=== PATIENT | male | born 1955 | race Caucasian/White ===

== ENCOUNTER → 2017-04-13 | Day surgery (SDC) | payer MEDICARE ==
[~2017-04-13] VITALS: Ht 177.8 cm; Wt 95.1 kg
[~2017-04-13] MED LIST: ACETAMINOPHEN 1000 MG/100 ML VIAL IV ONE; ACETAMINOPHEN 1000 MG/100 ML VIAL IV SCH; BUPIVACAINE HCL PF 0.5% 30 ML VIAL ONE; BUSP15TA PO; CHLORHEXIDINE GLUCONATE 2 % 1 PACK (2 CLOTHS) TOPICAL PRN; DEXAMETHASONE SOD PHOS 4 MG/ML VIAL ONE; DO NOT ADM ANY ANTICOAGULANT DRUGS PRN; HYDROmorphone HCL PF 2 MG/ML VIAL ONE; INSULIN HUMAN REGULAR 1,000 UNITS/10 ML VIAL SQ PRN; LACTATED RINGER'S 1000 ML INJ 1,000 ML IV ONE; LACTATED RINGER'S 1000 ML IV PRN; LOVA20TA PO; METOPROLOL TARTRATE 25 MG TAB PO PRN; MIDAZOLAM HCL 2 MG/2 ML VIAL ONE; MORPHINE SULFATE 4 MG/ML INJ IV PRN; NEOSTIGMINE 3 MG/3 ML SYR IV ONE; OMEP20TA PO; ONDANSETRON HCL 4 MG/2 ML VIAL IV PRN; ONDANSETRON HCL 4 MG/2 ML VIAL IV PUSH ONE; OXYC1TAB63 PO; POVIDONE IODINE 5% (ANTISEPSIS KIT) 4 APPLICATIONS EACH NARE PRN; PROPOFOL 200 MG/20 ML AMP IV ONE; PROZ40CA PO; QUET400XR PO; SODIUM CHLORID 0.9% 500 ML IV PRN; SODIUM CHLORIDE 0.9% FLUSH 10 ML FLUSH IV FLUSH PRN; SODIUM CHLORIDE 0.9% FLUSH 10 ML FLUSH IV FLUSH SCH; ceFAZolin 2 GM PREMIX 50 ML IV SCH; ceFAZolin 2 GM PREMIX 50 ML ONE; ePHEDrine/NS 25 MG/5 ML SYR IV ONE; fentaNYL CITRATE 250 MCG/5 ML AMP ONE; oxyCODONE/ACETAMINOPHEN 5 MG/325 MG TAB ONE; oxyCODONE/ACETAMINOPHEN 5 MG/325 MG TAB PO PRN
[2017-04-13 11:15] VITALS: BP 111/68; PULSE 65; RESP 18; TEMP 97.5; O2SAT 96
--- NOTE | 2017-04-13 15:36 | PD.OP ---
cc: Suhas Mendieta MD Operative Report Date of Surgery: Apr 13, 2017 Preoperative Diagnosis: (1) Left inguinal hernia Postoperative Diagnosis: (1) Left inguinal hernia Procedure: Left inguinal hernia repair with mesh Anesthesia: XENA Surgeon: Suhas Mendieta [employer] Worker(s): Lm Triplett Operation and Findings: EBL: 10 cc Operative findings: The patient had a direct inguinal hernia and a large indirect inguinal hernia which appeared to contain sigmoid colon although the sac was not opened. There was chronic scarring. Procedure in detail: The patient was taken to the operating room and placed in the supine position. Gen. Anesthesia was induced. The lower abdomen and groin was prepped and draped in usual sterile fashion. Appropriate preoperative antibiotics were administered. Marcaine was injected in the skin and subcutaneous tissue in the Left inguinal area and an inguinal incision was made. Dissection was carried out through subcutaneous tissue with electrocautery. Michaela's fascia was divided with electrocautery and the external oblique was encountered. A shaheen along the direction of fibers was created with a scalpel and extended with Metzenbaum scissors taking care not to injure underlying nerves. The external oblique flaps were created. The spermatic cord and hernia sac were from underlying tissues and the pubis and isolated with a Andree drain. Cremasteric muscle fibers were divided as necessary. There was significant weakening of the direct space of the inguinal floor although no true herniation through the direct space. At this point the spermatic cord structures were examined and a large indirect hernia was encountered. The hernia sac was carefully from cord structures. Two nerves were involved in the operative field and required neurectomy. The spermatic vessels and vas deferens were carefully preserved. The hernia sac was from surrounding structures all the way down to the internal ring and then allowed to reenter the abdominal cavity. The indirect hernia appeared to have a loop of sigmoid colon present. A 3 x 5" piece of lightweight polypropylene mesh was then cut to size. This was secured using simple interrupted 0 Ethibond suture to the pubic tubercle and along the inguinal ligament past the entrance of the spermatic cord into the internal ring. Simple interrupted 0 Ethibond sutures were used to fasten the superior aspect of the mesh medially and superiorly along the conjoined tendon and internal oblique fibers taking care to avoid nearby nerves. The internal ring was re-created by reapproximating the mesh with interrupted suture taking care to avoid strangulation of the cord. The lateral flaps of mesh were tucked under the external oblique fascia. There was appropriate hemostasis in the operative field. The external ring was re-created by closing the external oblique fascia with running 3-0 Vicryl suture. Michaela's was closed with interrupted 3-0 Vicryl sutures. Skin closed with running subcuticular 4-0 Monocryl as well as Dermabond. The patient tolerated procedure well and was taken to postop in stable condition. Suhas Mendieta MD Apr 13, 2017 15:36
[2017-04-13 16:50] VITALS: BP 137/82; PULSE 54; RESP 20; TEMP 97.7; O2SAT 96
== END | disposition home or self-care (01) ==
LOC: HSDC 10:26
PROVIDERS: ATTEND Surgery
DX: K40.90 Unilateral inguinal hernia, without obstruction or gangrene, not specified as recurrent (principal); E78.5 Hyperlipidemia, unspecified; K21.9 Gastro-esophageal reflux disease without esophagitis; F41.9 Anxiety disorder, unspecified
CPT/HCPCS: 00830; 49505; C1781; J0131; J0690; J1100; J1170; J2250; J2405; J2710; J3010; J7120